=== PATIENT | male | born 1960 | race Caucasian/White ===

== ENCOUNTER 2018-08-21 06:30 | Day surgery (SDC) | payer BC ==
[~2018-08-21 06:30] MED LIST: Lactated Ringers 1,000 ML IV SCH; Lidocaine 1%/Sod Bicarbonate in NS 8.4% 1 ML Syringe IDERM PRN; Sodium Chloride 0.9% 10 ML Syringe FLUSH PRN
[2018-08-21] MEDS ORDERED: Propofol 200 MG/20 ML SDV ONE (07:06)
[2018-08-21] MEDS ORDERED: fentaNYL 100 MCG/2 ML SDV ONE (07:06)
[2018-08-21] MEDS ORDERED: Lidocaine 1% 4 ML ONE (07:06)
[2018-08-21] MEDS ORDERED: Albuterol 0.083% 2.5 MG/3 ML Neb Soln NEB ONE (07:10)
--- NOTE | 2018-08-21 07:55 | PCM.PREANE ---
Preanesthetic Assessment - Anesthesia/Transfusion/Family Hx Anesthesia History: Prior Anesthesia Without Reaction Family History of Anesthesia Reaction: No - Review of Systems General: Other (Sinus Infection treated with antibiotics. Much improvement noted. ) Pulmonary: Shortness of Breath (SOB with activity. Occasional cough. Smoker 1ppd. Last cigarette this morning. ), Cough Cardiovascular: No Symptoms (Last stent placed in 2004. Stress test in 2016 negative. EKG Sinus Dilshad. 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 ) Other: Reports: Diabetes (Blood Sugar 122 mg/dl), Sinus Problem - Physical Assessment NPO Status Date: 08/20/18 NPO Status Time: 20:00 O2 Sat by Pulse Oximetry: 95 Respiratory Rate: 16 Vital Signs: Last Vital Signs Temp 36.8 C 08/21/18 06:35 Pulse 73 08/21/18 06:35 Resp 16 08/21/18 06:35 BP 127/81 08/21/18 06:35 Pulse Ox 95 08/21/18 07:15 Height: 1.68 m Weight: 96.615 kg ASA Class: 3 Mental Status: Alert & Oriented x3 Airway Class: Mallampati = 3 Dentition: Reports: Normal Dentition Thyro-Mental Finger Breadths: 3 Mouth Opening Finger Breadths: 3 ROM/Head Extension: Full Lungs: Clear to Auscultation, Normal Respiratory Effort, Decreased Breath Sounds Cardiovascular: Irregular Rhythm, Bradycardia - Lab Values: Laboratory Last Values POC Glucose 122 mg/dL (70-105) H 08/21/18 06:55 - Allergies Allergies/Adverse Reactions: Allergies Allergy/AdvReac Type Severity Reaction Status Date / Time Penicillins Allergy Other Verified 08/20/18 13:23 - Anesthesia Plan Beta Edith: Atenolol Med Last Dose Date: 08/21/18 (0530) - Acknowledgements Anesthesia Type Planned: MAC Pt an Appropriate Candidate for the Planned Anesthesia: Yes Alternatives and Risks of Anesthesia Discussed w Pt/Guardian: Yes Pt/Guardian Understands and Agrees with Anesthesia Plan: Yes PreAnesthesia Questionnaire HEENT History: Reports: Allergic Rhinitis, Sinusitis Cardiovascular History: Reports: CAD, High Cholesterol, Hypertension, Stents, Other (See Below) Other Cardiovascular History: illiac artery stenosis Respiratory History: Reports: Sleep Apnea, Other (See Below) Other Respiratory History: Seasonal allergies Gastrointestinal History: Reports: GERD Genitourinary History: Reports: Other (See Below) Other Genitourinary History: hyperurcemia ART PREPARATOR History: Reports: None Musculoskeletal History: Reports: Back Pain, Chronic Other Musculoskeletal History: diastis recti Neurological History: Reports: Neuropathy, Peripheral, TIA, Other (See Below) Other Neuro History: CVD Psychiatric History: Reports: None Endocrine/Metabolic History: Reports: None, Diabetes, Type II, Obesity/BMI 30+ Hematologic History: Reports: None Immunologic History: Reports: None Oncologic (Cancer) History: Reports: None Dermatologic History: Reports: Psoriasis - Past Surgical History Head Surgeries/Procedures: Reports: None HEENT Surgical History: Reports: Adenoidectomy, Oral Surgery, Tonsillectomy Cardiovascular Surgical History: Reports: Coronary Artery Stent Other Cardiovascular Surgeries/Procedures: total of 3 stents 2004- stent 2010 - stents Respiratory Surgical History: Reports: None GI Surgical History: Reports: Colonoscopy, EGD Female Surgical History: Reports: None Male Surgical History: Reports: None Endocrine Surgical History: Reports: None Neurological Surgical History: Reports: None Oncologic Surgical History: Reports: None Dermatological Surgical History: Reports: None - SUBSTANCE USE Smoking Status *Q: Current Every Day Smoker Recreational Drug Use History: No - HOME MEDS Home Medications: Home Meds Albuterol [Ventolin HFA] 1 - 2 puff INH Q4H PRN 08/20/18 [History] Aspirin 325 mg PO DAILY 08/20/18 [History] Atenolol 50 mg PO DAILY 08/20/18 [History] Clobetasol [Clobetasol Propionate 0.05% Cream] 1 dose TOP BID PRN 08/20/18 [ History] Empagliflozin [Jardiance] 10 mg PO QAM 08/20/18 [History] Losartan Potassium 12.5 mg PO DAILY 08/20/18 [History] Multivitamin [Daily Multiple Vitamin] 1 tab PO DAILY 08/20/18 [History] Pantoprazole Sodium 40 mg PO DAILY 08/20/18 [History] SitaGLIPtin [Januvia] 100 mg PO DAILY 08/20/18 [History] atorvaSTATin Calcium [Atorvastatin Calcium] 80 mg PO DAILY 08/20/18 [History] metFORMIN HCl [Metformin HCl] 500 mg PO BID 08/20/18 [History] - CURRENT (IN HOUSE) MEDS Current Meds: Current Medications Lactated Ringer's (Ringers, Lactated) 1,000 mls @ 125 mls/hr IV ASDIRECTED JUNAID Stop: 08/21/18 23:00 Last Admin: 08/21/18 06:50 Dose: 125 mls/hr Lidocaine/Sodium Bicarbonate (Buffered Lidocaine 1% In Ns 8.4%) 0.25 ml IDERM ONETIME PRN PRN Reason: Prior to IV Start Stop: 08/21/18 18:00 Last Admin: 08/21/18 06:50 Dose: 0.25 ml Sodium Chloride (Saline Flush) 10 ml FLUSH ASDIRECTED PRN PRN Reason: Keep Vein Open Stop: 08/21/18 18:00 Discontinued Medications Albuterol (Proventil Neb Soln) 2.5 mg NEB ONETIME ONE Stop: 08/21/18 07:11 Last Admin: 08/21/18 07:13 Dose: 2.5 mg Fentanyl (Sublimaze) Confirm Administered Dose 100 mcg .ROUTE .STK-MED ONE Stop: 08/21/18 07:07 Lidocaine HCl (Xylocaine-Mpf 1%) Confirm Administered Dose 4 mls @ as directed .ROUTE .STK-MED ONE Stop: 08/21/18 07:07 Propofol (Diprivan 20 Ml) Confirm Administered Dose 400 mg .ROUTE .STK-MED ONE Stop: 08/21/18 07:07
--- NOTE | 2018-08-21 08:06 | PCM.OPNOTE ---
- General Post-Op/Procedure Note Date of Surgery/Procedure: 08/21/18 Operative Procedure(s): High Risk Screening Colonoscopy Findings: Normal Colonoscopy Pre Op Diagnosis: Family history of colon cancer in father Post-Op Diagnosis: Normal colonoscopy Anesthesia Technique: MAC Primary Surgeon: Дмитрий Palm Anesthesia Provider: Andie Jonas EBL in mLs: 0 Complications: None Condition: Good Free Text/Narrative:: After the patient gave verbal and written consent he was placed on blood pressure ox monitoring. He was given IV sedation which he tolerated well. The olympus colonoscope was inserted per rectum and advanced to the cecum and to the terminal ileum without difficulty. The ileocecal valve and appendiceal orfice were imaged documenting cecal intubation. The terminal ileum was intubated and imaged and was normal to appearance. The scope was slowly withdrawn. THe prep was good. THe views were good. The mucosal surfaces were viewed. The scope was then brought down into the rectum and retroflexed. The examination was normal and there were no complications. THe patient left the endoscopy suite in good condition. Next colonoscopy recommended in 5 years due to family history or sooner for blood in the stool, radical change in bowel habits, iron deficiency anemia, etc.
--- NOTE | 2018-08-21 08:14 | PCM48HPAN ---
Post Anesthesia Note - EVALUATION WITHIN 48HRS OF ANESTHETIC Vital Signs in Normal Range: Yes Patient Participated in Evaluation: Yes Respiratory Function Stable: Yes Airway Patent: Yes Cardiovascular Function Stable: Yes Hydration Status Stable: Yes Pain Control Satisfactory: Yes Nausea and Vomiting Control Satisfactory: Yes Mental Status Recovered: Yes Pulse Rate: 60 SaO2: 93 Resp Rate: 16 Temperature: 37.2 C Blood Pressure: 100/63
[2018-08-21 09:01] VITALS: BP 112/75
== END 2018-08-21 08:47 | disposition home or self-care (01) ==
LOC: JD.SDS 06:30
PROVIDERS: ATTEND Family Medicine
DX: Z12.11 Encounter for screening for malignant neoplasm of colon (principal); I25.10 Atherosclerotic heart disease of native coronary artery without angina pectoris; I10 Essential (primary) hypertension; E78.00 Pure hypercholesterolemia, unspecified; K21.9 Gastro-esophageal reflux disease without esophagitis; E66.9 Obesity, unspecified; E78.2 Mixed hyperlipidemia; E78.1 Pure hyperglyceridemia; G47.33 Obstructive sleep apnea (adult) (pediatric); F17.210 Nicotine dependence, cigarettes, uncomplicated; Z99.89 Dependence on other enabling machines and devices; Z88.1 Allergy status to other antibiotic agents; Z80.0 Family history of malignant neoplasm of digestive organs; Z79.82 Long term (current) use of aspirin; Z79.899 Other long term (current) drug therapy; Z79.84 Long term (current) use of oral hypoglycemic drugs; Z79.02 Long term (current) use of antithrombotics/antiplatelets; Z68.34 Body mass index [BMI] 34.0-34.9, adult
CPT/HCPCS: 45378; 82962; 94640; J2001; J2704; J3010; J7120; 00812

== ENCOUNTER 2023-07-19 11:09 | Emergency (ER) | payer BC, MEDICARE ==
[2023-07-19] MEDS ORDERED: Sodium Chloride 0.9% 10 ML Syringe FLUSH PRN (11:43)
[2023-07-19] MEDS ORDERED: Sodium Chloride 0.9% 1,000 ML IV SCH (11:45)
[2023-07-19] MEDS ORDERED: Heparin Sodium 5,000 Units/ML Vial IVPUSH ONE (11:55)
[2023-07-19] MEDS ORDERED: Heparin Sodium/D5W 25,000 UNITS/500 ML BAG IV SCH ×2 (12:00)
[2023-07-19 12:21] LABS: BASOPHILS PERCENT AUTO 0.2 % (0.0-1.0); EOSINOPHILS ABSOLUTE AUTO 0.1 K/mm3 (0.0-0.4); EOSINOPHILS PERCENT AUTO 1.4 % (0.0-6.0); HEMATOCRIT 41.8 % (42.0-52.0); HEMOGLOBIN 14.6 gm/dl (14.0-18.0); IMMATURE GRAN ABSOLUTE AUTO 0.04 K/mm3 (0.00-0.05); IMMATURE GRAN PERCENT AUTO 0.5 % (0.0-0.4); LYMPHOCYTES ABSOLUTE AUTO 2.7 K/mm3 (1.0-4.8); LYMPHOCYTES PERCENT AUTO 30.7 % (24.0-44.0); MEAN CORPUSCULAR HGB CONC 34.9 g/dl (32.0-36.0); MEAN CORPUSCULAR VOLUME 91.7 fl (83.0-99.0); MEAN PLATELET VOLUME 9.6 fl (9.4-12.4); MONOCYTES ABSOLUTE AUTO 0.6 K/mm3 (0.0-0.8); MONOCYTES PERCENT AUTO 6.8 % (0.0-8.0); NEUTROPHILS ABSOLUTE AUTO 5.3 K/mm3 (1.8-7.7); NEUTROPHILS PERCENT AUTO 60.4 % (41.0-71.0); PLATELET COUNT,PLT 191 K/mm3 (150-400); RED BLOOD CELL COUNT 4.56 M/mm3 (4.52-5.90); WHITE BLOOD CELL COUNT,WBC 8.74 K/mm3 (3.9-11.3)
[2023-07-19 12:52] LABS: A/G RATIO 0.8 (1-2); ANION GAP 13.2 (5-15); BILIRUBIN TOTAL 0.4 mg/dL (0.2-1.0); BUN/CREATININE RATIO 13.6 (14-18); CALCIUM 8.7 mg/dL (8.5-10.1); CREATININE 1.1 mg/dL (0.7-1.3); EST CRCL DRUG DOSING (CG) 63.43 mL/min; POTASSIUM,K 4.2 mEq/L (3.5-5.1)
[2023-07-19] MEDS ORDERED: Iopamidol 755 Mg/ML 100 ML Bottle IVPUSH ONE ×2 (13:14)
[2023-07-19] MEDS ORDERED: Sodium Chloride 0.9% 100 ML IV SCH (13:15)
[2023-07-19] MEDS ORDERED: Acetaminophen 325 MG Tab PO ONE (14:04)
[2023-07-19 15:14] VITALS: BP 150/103; PULSE 92
== END 2023-07-19 13:00 ==
LOC: JD.ED 11:09
DX: I70.222 Atherosclerosis of native arteries of extremities with rest pain, left leg (principal); I10 Essential (primary) hypertension; E78.00 Pure hypercholesterolemia, unspecified; I25.10 Atherosclerotic heart disease of native coronary artery without angina pectoris; K21.9 Gastro-esophageal reflux disease without esophagitis; E11.42 Type 2 diabetes mellitus with diabetic polyneuropathy; E66.9 Obesity, unspecified; Z95.5 Presence of coronary angioplasty implant and graft; Z79.899 Other long term (current) drug therapy; Z88.0 Allergy status to penicillin; Z91.018 Allergy to other foods; Z87.891 Personal history of nicotine dependence; Z68.34 Body mass index [BMI] 34.0-34.9, adult
CPT/HCPCS: 36415; 75635; 80053; 82550; 83605; 85025; 85730; 93971; 96365; 96366; 99285; A9270; J1644; J3490; J7030; Q9967